=== PATIENT | female | born 1965 | race African-American/Black ===

== ENCOUNTER → 2016-07-19 | Outpatient (CLI) | payer OTHER ==
--- NOTE | ~2016-07-19 | S ---
[facility] [place] [address] SURGICAL PATH RPT PROCEDURE Name: GEOFF EDGE Room #: REG [facility].#: [id number] Admission: 07/19/16 Date of : 67 Discharge: Report #: [id number] Path Case #: [id number] PATHOLOGY REPORT COLLECTION DATE: 07/19/2016 RECEIVED DATE: 07/19/2016 SUBMITTING PHYS: Dr. Bunny Hammonds OTHER PHYS: Dr. Bina Mccarty SPECIMEN(S) RECEIVED: A.Bilateral Rt side B.Bilateral left side * * * * * * * * * * * * FINAL DIAGNOSIS: A. Thyroid, right thyroid, needle core biopsy: - Tightly packed microfollicular lesion with a few macrofollicles. (Please see comment) - No definite capsule identified. B. Thyroid, left thyroid, needle core biopsy: - Tightly packed microfollicular lesion with a few macrofollicles. (Please see comment) - No definite capsule identified. COMMENT: Examination of the "right thyroid" and "left thyroid" biopsy tissues shows tightly packed microfollices and a few scattered macrofollicles. A discrete fibrous capsule-like area is not identified. Nuclear features of papillary thyroid carcinoma are not identified. Based on the microscopic appearance, the lesion might represent an adenomatoid nodule, a microfollicular adenoma, or a neoplasm. Please note the nature of the sample precludes evaluation for follicular carcinoma. The concurrent FNA ([id number], please see separately) showed findings suggestive of an adenomatoid nodule; however, architecture is usually not well represented in the fine needle aspirate smears. Please see separate report for details. Please note sample represents a minute portion of a larger lesion and may not be merchandiser retail representative. Co-review: Dr. Lisa Gómez PATHOLOGIST: Tanna Mcclure M.D. REPORT ELECTRONICALLY SIGNED BY: Tanna Mcclure M.D. DATE/TIME: 07/21/2016 16:37 * * * * * * * * * * * * [facility] [place] [address] SURGICAL PATH RPT PROCEDURE Name: GEOFF EDGE Room #: REG [facility] Marcello.#: [id number] Admission: 07/19/16 Date of : 67 Discharge: Report #: [id number] Path Case #: [id number] GROSS PATHOLOGY: A. Received in formalin labeled "Geoff Edge, right thyroid biopsy," are four distinct needle cores of hammond soft tissue ranging from 0.3 to 0.7 cm in length, which are submitted entirely in cassette A1. B. Received in formalin labeled "Geoff Edge, left thyroid biopsy," are two distinct needle cores of hammond soft tissue ranging from 0.3 to 0.5 cm in length, which are submitted entirely in cassette B1. (CAA; 07/20/2016) CLINICAL HISTORY: [place] INITIAL CPT CODE(S): A; 41645 B; 98222 Professional services performed by [facility] at [address] , [place] [address] Technical services performed by [facility] at [address] [place] [address], [address], [place] [address]. [facility] [address] [place] [address] PHONE: [phone] DIRECTOR: Cristino Chester M.D. * * * END OF REPORT * * *
--- NOTE | ~2016-07-19 | CNG ---
[facility] [place] [address] CYTO-NONGYN REPORT PROCEDURE Name: GEOFF EDGE [id number] Admission: 07/19/16 Date of : 67 Discharge: Report #: [id number] Path Case #: [id number] CYTOPATHOLOGY REPORT COLLECTION DATE: 07/19/2016 RECEIVED DATE: 07/19/2016 SUBMITTING PHYS: Dr. Bunny Hammonds OTHER PHYS: Dr. Bina Mccarty CLINICAL HISTORY: Mass. PROCEDURE: A. Passes performed by Radiologist under US guidance yielding fluid. Three fixed slides, three air-dried slides, and 30 mL from needle rinsed in fixative were submitted to the lab. B. Passes performed by Radiologist under US guidance yielding fluid. Three fixed slides, three air-dried slides, and 30 mL from needle rinsed in fixative were submitted to the lab. SPECIMEN(S) RECEIVED: A.US guided Fine needle aspiration, Left thyroid B.US gudied Fine needle aspiration, Right thyroid * * * * * * * * * * * * FINAL DIAGNOSIS: A. Thyroid, left thyroid, ultrasound guided fine needle aspiration: - BETHESDA CATEGORY II. - Specimen consists of groups of follicular cells, rare hemosiderin-laden macrophages and colloid, favor an adenomatoid nodule. B. Thyroid, right thyroid, ultrasound guided fine needle aspiration: - BETHESDA CATEGORY II. - Specimen consists of groups of follicular cells, rare hemosiderin-laden macrophages and colloid, favor an adenomatoid nodule. COMMENT: Examination of the left and the right thyroid fine needle aspirate smears appear similar and show multiple groups of thyroid follicular cells in macro follicles as well as micro follicles. In addition, focal dense colloid as well as abundant watery colloid is identified. A rare collection of macrophages is seen. Nuclear features of papillary thyroid carcinoma are not identified. Findings are suggestive of an adenomatoid nodule with mixed macro and micro follicular architecture. The concurrent biopsy tissues ([id number], please see separate report for details) showed a microfollicular lesion with few macrofollicles [address] [address] CYTO-NONGYN REPORT PROCEDURE Name: GEOFF EDGE [facility] [id number] Admission: 07/19/16 Date of : 67 Discharge: Report #: [id number] Path Case #: [id number] in both the left and right side thyroid needle core biopsy tissues. Upon correlation with the needle core biopsy tissue, the sample may represent a benign adenomatoid nodule, micro follicular adenoma, or a neoplasm. Portions of both of these nodules were collected in RNA Retain vials. These may be sent for analysis if requested. Please note sampled represents a minor portion of a larger lesion. Correlate clinically and follow up as indicated. Co-review: Dr. Lisa Gómez (inside technical sales representative pap smear for part A and part B). PATHOLOGIST: Tanna Mcclure M.D. REPORT ELECTRONICALLY SIGNED BY: Tanna Mcclure M.D. DATE/TIME: 07/21/2016 16:40 * * * * * * * * * * * * GROSS PATHOLOGY: A. US guided Fine needle aspiration, Left thyroid: The specimen is labeled "Geoff Edge" and consists of three fixed slides, three air dried slides. Thirty mL of clear pink fluid in fixative from the needle rinse is also submitted and one ThinPrep slide and a cell block were prepared from this material. Also received is the RNARetain vial which will be held for molecular studies if needed. B. US gudied Fine needle aspiration, Right thyroid: The specimen is labeled "Geoff Edge" and consists of three fixed slides, three air dried slides. Thirty mL of clear pink fluid in fixative from the needle rinse is also submitted and one ThinPrep slide and a cell block were prepared from this material. (clt 07.19.2016) Also received is the RNARetain vial which will be held for molecular studies if needed. HEEL SORTER(S): LAURITA Khan([facility]) INITIAL CPT CODE(S): A; 47244, 68315 B; 46561, 27091 Professional services performed by [facility] at [address], [place] [address] Technical services performed by [facility] at [address] [place] [address], [place] [address], [place] [address]. [facility] [address] [place] [address], [address] [place] [address] CYTO-NONGYN REPORT PROCEDURE Name: GEOFF EDGE Room #: REG [facility] Jordan#: [id number] Admission: 07/19/16 Date of : 67 Discharge: Report #: [id number] Path Case #: [id number] PHONE: [phone] DIRECTOR: Cristino Chester M.D. * * * END OF REPORT * * *
== END ==
LOC: ULTRA 09:40
DX: E05.90 Thyrotoxicosis, unspecified without thyrotoxic crisis or storm (principal); E04.1 Nontoxic single thyroid nodule; E04.2 Nontoxic multinodular goiter